=== PATIENT | female | born 1995 | race American Indian/Alaskan Native ===

== ENCOUNTER 2018-10-08 14:05 | Outpatient (CLI) | payer OTHER | END 2018-10-08 20:49 | disposition home or self-care (01) | LOC: OBS/DEL 14:05 | DX: O26.893 Other specified pregnancy related conditions, third trimester (principal); Z04.3 Encounter for examination and observation following other accident; Z34.03 Encounter for supervision of normal first pregnancy, third trimester; W18.39XA Other fall on same level, initial encounter; Y93.89 Activity, other specified; Y92.89 Other specified places as the place of occurrence of the external cause; Y99.8 Other external cause status ==

== ENCOUNTER 2018-11-26 06:42 | Inpatient (IN) | payer OTHER ==
[~2018-11-26] VITALS: Ht 170.2 cm; Wt 3.2 kg
[2018-11-26] MEDS ORDERED: PRENATAL TABLE1 EAC4 (09:09)
== END 2018-11-29 14:27 | DRG 788 ==
LOC: LDR 06:42 → OB/GYN 06:42 → O/R 21:59 → OB/GYN 11-27 00:14
PROVIDERS: ADMIT Obstetrics & Gynecology
PROC: 3E033VJ Introduction of Other Hormone into Peripheral Vein, Percutaneous Approach (ICD-10-PCS; 2018-11-26)
PROC: 4A033R1 Measurement of Arterial Saturation, Peripheral, Percutaneous Approach (ICD-10-PCS; 2018-11-26)
PROC: 10D00Z1 Extraction of Products of Conception, Low, Open Approach (ICD-10-PCS; principal; 2018-11-26 20:00)
DX: O61.0 Failed medical induction of labor (principal); O62.0 Primary inadequate contractions; Z22.330 Carrier of Group B streptococcus; Z37.0 Single live birth; Z3A.39 39 weeks gestation of pregnancy

== ENCOUNTER 2021-02-20 08:57 | Emergency (ER) | payer OTHER ==
[~2021-02-20] VITALS: Ht 170.2 cm; Wt 72.1 kg
[~2021-02-20 08:57] MED LIST: PRENATAL TABLE1 EAC4
== END 2021-02-20 12:00 | disposition home or self-care (01) ==
LOC: ER 08:57
DX: N39.0 Urinary tract infection, site not specified (principal)

== ENCOUNTER 2022-03-19 08:45 | Inpatient (IN) | payer OTHER ==
[~2022-03-19] VITALS: Ht 170.2 cm; Wt 3.6 kg
[2022-03-19] MEDS ORDERED: PRENAT PO (10:26)
[2022-03-21] MEDS ORDERED: PRENATAL + DHA1 EAC1 (13:37)
== END 2022-03-23 14:28 | disposition home or self-care (01) | DRG 788 ==
LOC: O/R 03-21 08:24 → OB/GYN 03-21 08:24 → SURH 03-21 08:45 → OB/GYN 03-21 15:42 → SURH 03-21 16:45 → OB/GYN 03-22 15:51
PROVIDERS: ADMIT Obstetrics & Gynecology; ATTEND Obstetrics & Gynecology
PROC: 4A1HXCZ Monitoring of Products of Conception, Cardiac Rate, External Approach (ICD-10-PCS; 2022-03-21)
PROC: 10D00Z1 Extraction of Products of Conception, Low, Open Approach (ICD-10-PCS; principal; 2022-03-21 16:45)
DX: O36.63X0 Maternal care for excessive fetal growth, third trimester, not applicable or unspecified (principal); Z3A.39 39 weeks gestation of pregnancy; Z37.0 Single live birth; O34.211 Maternal care for low transverse scar from previous cesarean delivery; Z20.822 Contact with and (suspected) exposure to COVID-19